=== PATIENT | female | born 1945 | race Caucasian/White ===

== ENCOUNTER 2016-08-09 21:15 | Inpatient (IN) | payer OTHER, BC ==
[~2016-08-09] VITALS: Ht 157.5 cm; Wt 51.7 kg
[~2016-08-09 21:15] MED LIST: ALPR-373 PO; AMLO5TAB4 PO; CALC667C PO; LEVO175T7 PO; METOPROLOL ER PO; NEPH PO; PARI1CAP PO; PRAV40TA63 PO
[2016-08-09 21:20] VITALS: BP_SYST 134
[2016-08-09] MEDS ORDERED: NACL 0.9% 1,000 ML IV ONE (22:36)
[2016-08-09] MEDS ORDERED: HYDROmorphone 1 MG INJ. 1 MG/ML AMPUL IVP ONE (22:45)
[2016-08-09] MEDS ORDERED: ONDANSETRON HCL 4 MG/2 ML VIAL IVP ONE (22:45)
[2016-08-09 23:17] LABS: BASOPHILS # (AUTO) 0.1 K/uL (0.0-0.2); BASOPHILS % (AUTO) 1.1 % (0.0-2.0); EOSINOPHILS # (AUTO) 0.5 K/uL (0.0-0.4); EOSINOPHILS % (AUTO) 7.8 % (0.0-4.0); HEMATOCRIT 30.6 % (36-48); HEMOGLOBIN 10.3 g/dL (12.0-16.0); LYMPHOCYTES # (AUTO) 1.9 K/uL (1.0-5.5); LYMPHOCYTES % (AUTO) 30.2 % (20.5-51.5); MEAN CORPUSCULAR HEMOGLOBIN 32 pg (27-31); MEAN CORPUSCULAR HGB CONC 34 % (32-36); MEAN CORPUSCULAR VOLUME 96 fL (79.0-98.0); MONOCYTES # (AUTO) 0.6 K/uL (0.0-1.0); MONOCYTES % (AUTO) 8.9 % (1.7-9.3); NEUTROPHILS # (AUTO) 3.3 K/uL (1.8-7.7); PLATELET COUNT (AUTO) 306 K/uL (130-430); RED CELL DISTRIBUTION WIDTH 14.1 % (9.0-15.0); WHITE BLOOD COUNT (AUTO) 6.4 K/uL (4.8-10.8)
[2016-08-09 23:21] LABS: ANION GAP 3 (5-15); CALCIUM 9.2 mg/dL (8.4-11.0); CHLORIDE 102 mmol/L (98-107); CREATININE 7.28 mg/dL (0.55-1.30); GLUCOSE 100 mg/dL (70-99); POTASSIUM 4.6 mmol/L (3.5-5.1); SODIUM SERUM 138 mmol/L (136-145); UREA NITROGEN, BLOOD 43 mg/dL (8-21)
[2016-08-09 23:24] LABS: INR 0.9 (0.8-1.2); PROTHROMBIN TIME 9.5 SECS (9.5-12.5)
[2016-08-09 23:25] LABS: ALANINE AMINOTRANSFERASE 19 U/L (12-78); AMYLASE 139 U/L (0-100); ASPARTATE AMINOTRANSFERASE 16 U/L (10-37); LIPASE 448 U/L (73-393); TOTAL BILIRUBIN 0.2 mg/dL (0.0-1.0); TOTAL PROTEIN, SERUM 6.7 g/dL (6.4-8.3)
[2016-08-09] MEDS ORDERED: LIDOCAINE/PRILOCAINE 5 GM CREAM (EMLA) TP ONE (23:30)
[2016-08-09] MEDS ORDERED: LIDOCAINE JELLY 5 ML TUBE MM ONE (23:30)
[2016-08-10] VITALS (7 sets, daily range): BP systolic 111–151
[2016-08-10] MEDS ORDERED: NACL 0.9% 1,000 ML IV ONE (00:30)
[2016-08-10] MEDS ORDERED: ONDANSETRON HCL 4 MG/2 ML VIAL IVP PRN (00:30)
[2016-08-10] MEDS ORDERED: METO-442 PO (00:42)
[2016-08-10] MEDS ORDERED: LEVO150T8 PO (00:42)
[2016-08-10] MEDS ORDERED: RANI300T7 PO (00:42)
[2016-08-10] MEDS ORDERED: ASPI-1063 PO (00:42)
[2016-08-10] MEDS ORDERED: PRAV40TA PO (00:42)
[2016-08-10] MEDS: NACL 0.9% 1,000 ML IV SCH ×2 (03:28→13:00)
[2016-08-10] MEDS ORDERED: LEVOTHYROXINE SODIUM 0.15 MG TABLET PO SCH (07:00)
[2016-08-10] MEDS ORDERED: NON-FORMULARY MEDICATION (Levothyroxine Sodium 175 MCG) PO SCH (07:00)
[2016-08-10] MEDS ORDERED: NON-FORMULARY MEDICATION (Pravastatin Sodium 40 MG) PO SCH (09:00)
[2016-08-10] MEDS ORDERED: NON-FORMULARY MEDICATION (Paricalcitol (Zemplar) 1 MCG) PO SCH (09:00)
[2016-08-10] MEDS ORDERED: amLODIPine BESYLATE 5 MG TABLET PO SCH (09:00)
[2016-08-10] MEDS: HYDROmorphone 1 MG INJ. 1 MG/ML AMPUL IVP PRN ×2 (11:10→20:48)
[2016-08-10] MEDS: ASPIRIN 81 MG TABLET(ECOTRIN) PO SCH (11:13)
[2016-08-10] MEDS: SIMVASTATIN 20 MG TABLET PO SCH (11:13)
[2016-08-10] MEDS: NEPHROVITE, (FOLIC ACID/VITAMIN B COMP W-C 1 TAB) PO SCH (11:14)
[2016-08-10] MEDS: CALCIUM ACETATE 667 MG CAP PO SCH ×3 (11:14→17:00)
[2016-08-10] MEDS: METOPROLOL TARTRATE 50 MG TABLET PO SCH ×2 (11:19→20:47)
[2016-08-10 11:37] LABS: ALANINE AMINOTRANSFERASE 16 U/L (12-78); ALBUMIN 2.7 g/dL (3.4-4.8); AMYLASE 103 U/L (0-100); ANION GAP 7 (5-15); ASPARTATE AMINOTRANSFERASE 13 U/L (10-37); CALCIUM 8.6 mg/dL (8.4-11.0); CHLORIDE 106 mmol/L (98-107); CREATININE 6.74 mg/dL (0.55-1.30); GLUCOSE 108 mg/dL (70-99); LIPASE 307 U/L (73-393); POTASSIUM 4.6 mmol/L (3.5-5.1); SODIUM SERUM 139 mmol/L (136-145); TOTAL BILIRUBIN 0.2 mg/dL (0.0-1.0); TOTAL PROTEIN, SERUM 6.1 g/dL (6.4-8.3); UREA NITROGEN, BLOOD 44 mg/dL (8-21)
[2016-08-10 19:32] LABS: BF APPEARANCE UNSPUN SLIGHTLY HAZY (CLEAR); SOURCE/TYPE ,BODY FLUID PERITONEAL
[2016-08-10 19:33] LABS: BODY FLUID COLOR YELLOW (LT YELLOW); BODY FLUID TOTAL VOLUME 40 mL
[2016-08-10 20:42] LABS: BODY FLUID OTHER CELLS 0 %; EOSINOPHIL, BODY FLUID 1 %; LYMPHOCYTES, BODY FLUID 24 %; MONOCYTES,BODY FLUID 55 %; NEUTROPHIL, BODY FLUID 20 %; RBC, BODY FLUID 48 /uL; WBC, BODY FLUID 63 /uL
[2016-08-10 22:47] LABS: BODY FLUID GLUCOSE 470 mg/dL; BODY FLUID TOTAL PROTEIN 2.2 g/dL
[2016-08-11] VITALS: BP_SYST 143
[2016-08-11] MEDS: HYDROmorphone 1 MG INJ. 1 MG/ML AMPUL IVP PRN (02:54)
[2016-08-11 04:00] VITALS: BP_SYST 145
[2016-08-11] MEDS ORDERED: LEVOTHYROXINE SODIUM 0.1 MG TABLET PO SCH (07:00)
[2016-08-11] MEDS ORDERED: LEVOTHYROXINE SODIUM 0.075 MG TABLET PO SCH (07:00)
[2016-08-11 07:39] LABS: BASOPHILS # (AUTO) 0.1 K/uL (0.0-0.2); EOSINOPHILS # (AUTO) 0.6 K/uL (0.0-0.4); EOSINOPHILS % (AUTO) 7.3 % (0.0-4.0); HEMATOCRIT 32.9 % (36-48); LYMPHOCYTES # (AUTO) 2.1 K/uL (1.0-5.5); LYMPHOCYTES % (AUTO) 26.2 % (20.5-51.5); MEAN CORPUSCULAR HEMOGLOBIN 32 pg (27-31); MEAN CORPUSCULAR HGB CONC 33 % (32-36); MEAN CORPUSCULAR VOLUME 97 fL (79.0-98.0); MONOCYTES # (AUTO) 0.6 K/uL (0.0-1.0); MONOCYTES % (AUTO) 7.8 % (1.7-9.3); NEUTROPHILS # (AUTO) 4.5 K/uL (1.8-7.7); NEUTROPHILS % (AUTO) 57.7 % (40.0-70.0); PLATELET COUNT (AUTO) 325 K/uL (130-430); RED BLOOD CELL COUNT(AUTO) 3.39 MIL/uL (4.2-6.2); RED CELL DISTRIBUTION WIDTH 14.1 % (9.0-15.0); WHITE BLOOD COUNT (AUTO) 7.9 K/uL (4.8-10.8)
[2016-08-11 08:05] LABS: ALANINE AMINOTRANSFERASE 17 U/L (12-78); ALBUMIN 3.1 g/dL (3.4-4.8); AMYLASE 96 U/L (0-100); ANION GAP 5 (5-15); ASPARTATE AMINOTRANSFERASE 15 U/L (10-37); CALCIUM 9.6 mg/dL (8.4-11.0); CHLORIDE 102 mmol/L (98-107); CREATININE 6.62 mg/dL (0.55-1.30); GLUCOSE 96 mg/dL (70-99); LIPASE 211 U/L (73-393); SODIUM SERUM 136 mmol/L (136-145); TOTAL BILIRUBIN 0.3 mg/dL (0.0-1.0); TOTAL PROTEIN, SERUM 7.1 g/dL (6.4-8.3); UREA NITROGEN, BLOOD 44 mg/dL (8-21)
[2016-08-11] MEDS: SIMVASTATIN 20 MG TABLET PO SCH (08:29)
[2016-08-11 08:30] VITALS: BP_SYST 124
[2016-08-11] MEDS: METOPROLOL TARTRATE 50 MG TABLET PO SCH ×2 (08:31→21:45)
[2016-08-11] MEDS: NEPHROVITE, (FOLIC ACID/VITAMIN B COMP W-C 1 TAB) PO SCH (08:32)
[2016-08-11] MEDS: CALCIUM ACETATE 667 MG CAP PO SCH ×3 (08:32→18:08)
[2016-08-11] MEDS: ASPIRIN 81 MG TABLET(ECOTRIN) PO SCH (08:33)
[2016-08-11 13:08] VITALS: BP_SYST 132
[2016-08-11] MEDS ORDERED: ALPRAZolam 0.25 MG TABLET PO ONE (13:15)
[2016-08-11] MEDS ORDERED: ALPRAZolam 0.25 MG TABLET ONE (13:28)
[2016-08-11 18:35] VITALS: BP_SYST 130
[2016-08-11 19:40] VITALS: BP_SYST 122
[2016-08-12 00:39] VITALS: BP_SYST 126
[2016-08-12 01:06] LABS: BILIRUBIN,URINE NEGATIVE (NEGATIVE); BLOOD, URINE NEGATIVE (NEGATIVE); CLARITY/URINE CLEAR (CLEAR); COLOR,URINE YELLOW (YELLOW); GLUCOSE,URINE NEGATIVE (NEGATIVE); KETONES,URINE NEGATIVE (NEGATIVE); PH,URINE 7.5 (5.0-8.0); PROTEIN URINE 1+ (NEGATIVE)
[2016-08-12 01:07] LABS: LEUKOCYTE ESTERASE ,URINE NEGATIVE (NEGATIVE); NITRITE, URINE NEGATIVE (NEGATIVE); UROBILINOGEN,URINE 0.2 (0.2-1.0)
[2016-08-12 01:11] LABS: BACTERIA,URINE FEW /HPF (None Seen); MUCUS,URINE None Seen /LPF (None Seen); RBC,URINE NONE SEEN /HPF (0-3); WBC,URINE 0-3 /HPF (0-3)
[2016-08-12 04:59] VITALS: BP_SYST 125
[2016-08-12 07:12] LABS: ANION GAP 5 (5-15); CALCIUM 8.7 mg/dL (8.4-11.0); CHLORIDE 104 mmol/L (98-107); CREATININE 6.58 mg/dL (0.55-1.30); GLUCOSE 79 mg/dL (70-99); PHOSPHORUS 4.8 mg/dL (2.7-4.5); POTASSIUM 4.7 mmol/L (3.5-5.1); SODIUM SERUM 136 mmol/L (136-145); UREA NITROGEN, BLOOD 49 mg/dL (8-21)
[2016-08-12] MEDS: SIMVASTATIN 20 MG TABLET PO SCH (09:00)
[2016-08-12] MEDS: CALCIUM ACETATE 667 MG CAP PO SCH ×2 (09:00→13:00)
[2016-08-12 09:40] VITALS: BP_SYST 144
[2016-08-12] MEDS: NEPHROVITE, (FOLIC ACID/VITAMIN B COMP W-C 1 TAB) PO SCH (09:40)
[2016-08-12] MEDS: ASPIRIN 81 MG TABLET(ECOTRIN) PO SCH (09:41)
[2016-08-12] MEDS: METOPROLOL TARTRATE 50 MG TABLET PO SCH (09:41)
[2016-08-12 12:51] VITALS: BP_SYST 144
[2016-08-12 14:35] VITALS: BP_SYST 155
== END 2016-08-12 13:49 | disposition home or self-care (01) | DRG 438 ==
LOC: SED 21:15 → STU 08-10 00:27 → SMU 08-10 20:28
PROVIDERS: ADMIT Internal Medicine; ATTEND Internal Medicine
PROC: 3E1M39Z Irrigation of Peritoneal Cavity using Dialysate, Percutaneous Approach (ICD-10-PCS; principal; 2016-08-10)
DX: K85.90 Acute pancreatitis without necrosis or infection, unspecified (principal); N18.6 End stage renal disease; I12.0 Hypertensive chronic kidney disease with stage 5 chronic kidney disease or end stage renal disease; Q60.0 Renal agenesis, unilateral; I48.0 Paroxysmal atrial fibrillation; E78.5 Hyperlipidemia, unspecified; D63.8 Anemia in other chronic diseases classified elsewhere; E03.9 Hypothyroidism, unspecified; F41.9 Anxiety disorder, unspecified; Z99.2 Dependence on renal dialysis; Z80.49 Family history of malignant neoplasm of other genital organs; Z87.442 Personal history of urinary calculi; Z90.5 Acquired absence of kidney; Z88.6 Allergy status to analgesic agent; Z88.1 Allergy status to other antibiotic agents; Z88.0 Allergy status to penicillin; Z80.3 Family history of malignant neoplasm of breast; Z87.891 Personal history of nicotine dependence; Z79.899 Other long term (current) drug therapy
CPT/HCPCS: 36415; 76700-TC; 80048; 80053; 81000-TC; 82150-TC; 82947-TC; 83690-TC; 84100-TC; 84157-TC; 85025; 85610-TC; 85730-TC; 87040-TC; 87070-TC; 87086; 89051-TC; 89060-TC; 90935; 96361; 96374; 96375; 99285; J1170; J2405; J7030

== ENCOUNTER 2016-10-20 09:25 | Outpatient (CLI) | payer OTHER, BC ==
[~2016-10-20 09:25] MED LIST changes: -AMLO5TAB4 PO; +ASPI-1063 PO; +LEVO150T8 PO; +METO-442 PO; -METOPROLOL ER PO; +PRAV40TA PO; +RANI300T7 PO
== END 2016-10-20 20:20 | disposition home or self-care (01) ==
LOC: SUS 09:25
PROVIDERS: ATTEND Internal Medicine
DX: R10.32 Left lower quadrant pain (principal); R10.2 Pelvic and perineal pain
CPT/HCPCS: 76830-TC; 76857

== ENCOUNTER 2016-11-07 14:25 | Outpatient (CLI) | payer OTHER, BC | END 2016-11-07 19:49 | disposition home or self-care (01) | LOC: SRD 14:25 | PROVIDERS: ATTEND Internal Medicine | DX: M47.896 Other spondylosis, lumbar region (principal); M41.86 Other forms of scoliosis, lumbar region | CPT/HCPCS: 72110 ==